=== PATIENT | female | born 1970 | race Caucasian/White ===

== ENCOUNTER → 2018-06-08 | Day surgery (SDC) | payer BC ==
[~2018-06-08] MED LIST: ALBUTEROL SULFATE 2.5 MG/3 ML NEBU. NEB PRN; ATROPINE 0.5 MG/5 ML DISP.SYRIN. IV PRN; IV RINGERS SOLUTION,LACTATED 1,000 ML IV SCH; LIDOCAINE 2% PF Vial for OR 5 ML VIAL. ONE; METH27TA5 PO; NALOXONE 0.4 MG/ML VIAL. IV PRN; OMEP20CA9 PO; ONDANSETRON PF 4 MG/2 ML VIAL. IV PRN; PROPOFOL 20 ML IV ONE; diphenhydrAMINE 50 MG/ML VIAL IV PRN
[2018-06-08 11:44] LABS: U PREG PATIENT NEGATIVE (NEG)
[2018-06-08 12:24] VITALS: BP 121/76
== END | disposition home or self-care (01) ==
LOC: SURG 09:57
PROVIDERS: ATTEND Internal Medicine Gastroenterology
DX: K21.9 Gastro-esophageal reflux disease without esophagitis (principal); F32.9 Major depressive disorder, single episode, unspecified; F41.9 Anxiety disorder, unspecified; Z98.890 Other specified postprocedural states; F17.210 Nicotine dependence, cigarettes, uncomplicated; Z72.89 Other problems related to lifestyle; E05.00 Thyrotoxicosis with diffuse goiter without thyrotoxic crisis or storm; Z88.1 Allergy status to other antibiotic agents; Z79.899 Other long term (current) drug therapy
CPT/HCPCS: 43239; 81025; J2704; J3010; J7120; J2001

== ENCOUNTER → 2018-09-01 | Outpatient (CLI) | payer BC ==
[2018-06-08 12:24] VITALS: BP 121/76
[~2018-09-01] MED LIST changes: -ALBUTEROL SULFATE 2.5 MG/3 ML NEBU. NEB PRN; -ATROPINE 0.5 MG/5 ML DISP.SYRIN. IV PRN; -IV RINGERS SOLUTION,LACTATED 1,000 ML IV SCH; -LIDOCAINE 2% PF Vial for OR 5 ML VIAL. ONE; -NALOXONE 0.4 MG/ML VIAL. IV PRN; -ONDANSETRON PF 4 MG/2 ML VIAL. IV PRN; -PROPOFOL 20 ML IV ONE; -diphenhydrAMINE 50 MG/ML VIAL IV PRN
--- NOTE | 2018-09-01 17:25 | RAD ---
Abdominal ultrasound, 09/01/2018: HISTORY: Abdominal pain The gallbladder is within normal limits in size. There is no sonographic evidence of cholelithiasis. The gallbladder wall is not thickened. The common hepatic duct is at the upper limits of normal measuring 5-6 mm. No intrahepatic bile duct dilatation is seen. There is no evidence of a hepatic mass. The visualized portions of the pancreas, spleen and both kidneys are unremarkable. The abdominal aorta and inferior vena cava show no abnormality. No free fluid is evident in the abdomen. IMPRESSION: No significant abdominal abnormality is detected. Electronically signed by: Oleksandr Garcia MD (09/01/2018 5:21 PM) [facility]
--- NOTE | 2018-09-01 17:31 | RAD ---
Pelvic ultrasound, 09/01/2018: HISTORY: Excessive menstruation Transabdominal and transvaginal scans were obtained. The uterus measures 10.2 x 4.7 x 6.3 cm. The central uterine echo complex measures 9 mm in AP dimension. A small amount of fluid is noted in the cervical canal. This outlines a small vascular nodule suggesting a polyp, measuring 6 x 3 x 7 mm. The myometrium is heterogeneous. A 2.1 cm slightly hyperechoic nodule is seen anteriorly in the uterus compatible with a fibroid. The right ovary measures 3.2 x 2.0 x 3.4 cm. It contains a 2 cm cyst. The left ovary measures 2.3 x 1.5 x 2.6 cm. There is blood flow in both ovaries. The adnexal regions are otherwise unremarkable. No free fluid is evident in the pelvis. IMPRESSION: 1. Mildly enlarged heterogeneous uterus with at least one myometrial mass compatible with a fibroid. 2. Probable small cervical polyp. 3. Small right ovarian cyst. Electronically signed by: Oleksandr Garcia MD (09/01/2018 5:27 PM) [facility]
== END | disposition home or self-care (01) ==
LOC: US 08:23
PROVIDERS: ATTEND Family Medicine
DX: N83.291 Other ovarian cyst, right side (principal); N85.2 Hypertrophy of uterus
CPT/HCPCS: 76700; 76830; 76856